=== PATIENT | female | born 1995 | race Caucasian/White ===

== ENCOUNTER 2017-01-13 21:34 | Emergency (ER) | payer BC, OTHER ==
[~2017-01-13] VITALS: Ht 170.2 cm; Wt 56.7 kg
[2017-01-13 21:38] VITALS: TEMP 36.6; Ht 170.2 cm; Wt 56.7 kg
[2017-01-13] MEDS ORDERED: OXYMETAZOLINE HCL 0.05% NA SPR 15 ML BTL ONE (21:44)
[2017-01-13 22:37] VITALS: BP 112/63; PULSE 63; O2SAT 98
--- NOTE | 2017-01-14 02:57 | EMERGENCY ROOM VISIT NOTE ---
History First contact with patient: 21:48 Chief Complaint: NOSE BLEED (MINOR) Stated Complaint: BLEEDING DOWN THROAT History of Present Illness The patient is a 21 year old female who presents to the Emergency Room with complaints of epistaxis tonight who has a sinus infection and is currently on Augmentin has been blowing her nose quite frequently. Patient denies and definitely medications, headache, fevers, vomiting, chest pain, dyspnea, sore throat. She is tolerate by mouth fluids and food. Review of Systems See HPI for pertinent positives & negatives. A total of 10 systems reviewed and were otherwise negative. Past Medical/Surgical History Tonsillectomy Family History No pertinent family history Social History Smoking Status: Never Smoker Alcohol Use: other Drug Use: none Marital Status: single Housing Status: lives with family Occupation Status: student Current/Historical Medications No Active Prescriptions or Reported Meds Allergies Coded Allergies: No Known Allergies (Unverified , 07/10/11) Physical Exam Vital Signs Date Time Temp Pulse Resp B/P Pulse Ox O2 Delivery O2 Flow Rate FiO2 01/13/17 22:37 63 16 112/63 98 01/13/17 21:38 36.6 89 18 114/75 99 Room Air Pain Rating (0-10): 0 Physical Exam VITALS: Vitals are noted on the nurse's note and reviewed by myself. Vital signs stable. GENERAL: Pleasant female, in no acute distress, nondiaphoretic, well-developed well-nourished. SKIN: The skin was without rashes, erythema, edema, or bruising. There is no tenting of the skin. Capillary reflex less than 2 seconds. HEAD: Normocephalic atraumatic. EARS: External auditory canals clear, tympanic membranes pearly navarro without erythema or effusion bilaterally. EYES: Pupils equal round and reactive to light and accommodation. Conjunctivae without injection, sclerae without icterus. Extraocular movements intact. NOSE: Patent, turbinates without inflammation or discharge. No sinus tenderness. Dried blood in the right nares. No active bleeding visualized MOUTH: Mucous membranes moist. Pharynx without erythema or exudate. Uvula midline. Airway patent. Tongue does not deviate. No blood visualized the back of the throat. Mother was shown this. NECK: Supple without nuchal rigidity. No lymphadenopathy. No thyromegaly. Cervical spine is nontender. No JVD. HEART: Regular rate and rhythm without murmurs gallops or rubs. LUNGS: Clear to auscultation bilaterally without wheezes, rales or rhonchi. No dullness to percussion. No retractions or accessory muscle use. ABDOMEN: Positive bowel sounds x 4. Normal tympanic percussion. Soft, nontender, without masses or organomegaly. Verma sign negative. No guarding or rebound tenderness. MUSCULOSKELETAL: No muscle atrophy, erythema, or edema noted. NEURO: Patient was alert and oriented to person place and time. Normal sensation to light and sharp touch. No focal neurological deficits. Medical Decision & Procedures ED Course Prior records/ancillary studies reviewed. Triage Nursing notes reviewed. Additional history obtained from family. The patient's history was concerning for epistaxis. Differential diagnosis: Etiologies such as anterior epistaxis, coagulopathy, traumatic injury, fracture , septal hematoma, posterior epistaxis as well as other pathologies were entertained. Physical examination findings: As above. Anterior bleeding source. ER treatment provided: Direct pressure Intranasal phenylephrine On reassessment the patient felt better. Diagnostics interpreted by me: This appears to be consistent with epistaxis that is now resolved. Patient sees Dr. Tijerina from ENT. They're advised to follow-up in the next few days or here in the ER sooner for nose bleeding, fevers, headache, confusion, worsening signs or symptoms or as needed. Patient was neurovascularly and neurologically intact. She is observed for an hour with no rebleeding and requested to leave. I felt this is reasonable.. By the evaluation outlined above emergent etiologies such as coagulopathy, traumatic injury, fracture, septal hematoma, posterior epistaxis, as well as others were deemed relatively unlikely. The pt informed about the findings as listed above. All questions were answered and pleased with the treatment. Return instructions were outlined and the patient was discharged in stable condition. Referral: The patient was referred to ENT for a recheck of the current condition Medical Decision As above Impression Primary Impression: Epistaxis Departure Information Dispostion Home / Self-Care Condition FAIR Prescriptions No Active Prescriptions or Reported Meds Forms WORK / SCHOOL INSTRUCTIONS, HOME CARE DOCUMENTATION FORM, IMPORTANT VISIT INFORMATION Patient Instructions Nosebleeds - [facility] [place], [facility], [facility] Additional Instructions Avoid scratching, rubbing, picking, or blowing your nose. The stock drier tender your nasal passages the more likely they are to bleed. The following two products are available [id number] at most drug stores/pharmacies. [place] nasal spray or similar generic saline spray to keep the nose moist 3 to 4 times a day. If bleeding recurs apply direct pressure for an uninterrupted 20 minutes. On and off pressure is much less effective because it will disturb the clots that are forming. If the bleeding is still a problem after 20 minutes or is so heavy despite the pressure return to the emergency department. Continue current medications. Follow up with your ENT for an appointment this week. Tell the special education secretary you were referred from the ER. Follow-up with your primary care physician in 2 to 3 days for a recheck of your current condition.
== END 2017-01-13 22:37 | disposition home or self-care (01) ==
LOC: C.EDB 21:36 → C.EDD 22:37
DX: R04.0 Epistaxis (principal)